=== PATIENT | male | born 1975 | race Two or more races ===

== ENCOUNTER → 2017-08-26 | Outpatient (CLI) | payer OTHER ==
[2017-08-26 17:30] LABS: ALANINE AMINOTRANSFERASE 39 U/L (12-78); ALBUMIN 3.9 g/dL (3.4-5.0); ANION GAP 7 mmol/L (5-15); CALCIUM 9.1 mg/dL (8.5-10.1); CHLORIDE 107 mmol/L (98-107); CHOLESTEROL, TOTAL 181 mg/dL (140-239); CREATININE 0.91 mg/dL (0.7-1.3); TRIGLYCERIDES 136 mg/dL (50-200); VLDL CHOLESTEROL 27 mg/dL (0-25)
[2017-08-26 17:32] LABS: ALKALINE PHOSPHATASE 76 U/L (45-117); BILIRUBIN,TOTAL 0.4 mg/dL (0.2-1.0); CHOL/HDL RATIO 5.2; HDL CHOL % 19 % (26-37); HDL CHOLESTEROL (DIRECT) 35 mg/dL (40-60); LDL CHOLESTEROL,CALCULATED 119 mg/dL (54-169); LDL/HDL RATIO 3.4 (0.5-3.0); TOTAL PROTEIN 8.1 g/dL (6.4-8.2)
== END ==
LOC: LAB 16:56
PROVIDERS: ATTEND Family Medicine
DX: Z13.220 Encounter for screening for lipoid disorders (principal); Z13.1 Encounter for screening for diabetes mellitus
CPT/HCPCS: 36415; 80053; 80061

== ENCOUNTER → 2017-11-18 | Outpatient (CLI) | payer OTHER | END | disposition home or self-care (01) | LOC: CFH 10:57 | PROVIDERS: ATTEND Otolaryngology | DX: H74.8X1 Other specified disorders of right middle ear and mastoid (principal); H65.31 Chronic mucoid otitis media, right ear; H69.81 Other specified disorders of Eustachian tube, right ear; H61.23 Impacted cerumen, bilateral | CPT/HCPCS: 70480 ==

== ENCOUNTER → 2018-01-01 | Outpatient (CLI) | payer OTHER ==
[~2018-01-01] MED LIST: NONE PER PT
== END | disposition home or self-care (01) ==
LOC: STAR 08:28
PROVIDERS: ATTEND Specialist
DX: Z02.9 Encounter for administrative examinations, unspecified (principal)

== ENCOUNTER 2018-01-05 05:15 | Day surgery (SDC) | payer OTHER ==
[2018-01-01 11:55] VITALS: BP 111/74
[~2018-01-05] VITALS: Ht 170.2 cm; Wt 86.6 kg
[2018-01-05] MEDS ORDERED: LACTATED RINGERS 1,000 ML IV SCH (05:47)
[2018-01-05 05:48] VITALS: BP 111/74
[2018-01-05] MEDS ORDERED: LIDOCAINE-MPF 1%, 2ML INFIL ONE (06:00)
[2018-01-05] MEDS ORDERED: GELFILM OPHTHALMIC DRESSING ONE (06:27)
[2018-01-05] MEDS ORDERED: LIDOCAINE 1%-EPI 1:100K, 30ML ONE (06:27)
[2018-01-05] MEDS ORDERED: BACITRACIN OINT 500U/GM, 15 GM ONE (06:27)
[2018-01-05] MEDS ORDERED: EPINEPHRINE 1 MG/ML, 1ML ONE (06:28)
[2018-01-05] MEDS ORDERED: OFLOXACIN OPHTH 0.3%, 5ML ONE (06:35)
[2018-01-05] MEDS ORDERED: FENTANYL PF 250 MCG/5ML ONE (06:52)
[2018-01-05] MEDS ORDERED: MIDAZOLAM 1 MG/ML, 2ML ONE (06:52)
[2018-01-05] MEDS ORDERED: ROCURONIUM 10MG/ML,5ML ONE (06:53)
[2018-01-05] MEDS ORDERED: ACETAMINOPHEN 500 MG TABLET PO ONE (07:00)
[2018-01-05] MEDS ORDERED: ONDANSETRON ODT 8 MG PO ONE (07:00)
[2018-01-05] MEDS ORDERED: CEFAZOLIN 1,000 MG ONE ×2 (08:00)
[2018-01-05] MEDS ORDERED: HYDROmorphone 1 MG/ML, 1ML IV PRN (08:00)
[2018-01-05] MEDS ORDERED: hydrALAzine 20 MG/ML, 1ML IV PRN (08:00)
[2018-01-05] MEDS ORDERED: ALBUTEROL SULFATE 2.5 MG/3 ML NPPB PRN (08:00)
[2018-01-05] MEDS ORDERED: PROMETHAZINE 12.5 MG SUPP PR PRN (08:00)
[2018-01-05] MEDS ORDERED: MORPHINE SULFATE 4 MG/ML, 1ML IVPush PRN (08:00)
[2018-01-05] MEDS ORDERED: LORazepam 2 MG/ML, 1ML IVPush PRN (08:00)
[2018-01-05] MEDS ORDERED: ONDANSETRON 2MG/ML, 2ML ONE (08:00)
[2018-01-05] MEDS ORDERED: EPHEDRINE 50 MG/ML, 1ML IVPush PRN (08:00)
[2018-01-05] MEDS ORDERED: PROPOFOL 10 MG/ML, 20ML ONE (08:00)
[2018-01-05] MEDS ORDERED: PROMETHAZINE 25 MG/ML, 1ML IV PRN (08:00)
[2018-01-05] MEDS ORDERED: MIDAZOLAM 1 MG/ML, 2ML IV PRN (08:00)
[2018-01-05] MEDS ORDERED: DEXAMETHASONE 4 MG/ML, 1ML ONE ×2 (08:00)
[2018-01-05] MEDS ORDERED: ONDANSETRON 2MG/ML, 2ML IV PRN (08:00)
[2018-01-05] MEDS ORDERED: ONDANSETRON ODT 8 MG PO PRN (08:00)
[2018-01-05] MEDS ORDERED: MEPERIDINE/PF 25MG/0.5ML IVPush PRN (08:00)
[2018-01-05] MEDS ORDERED: HALOPERIDOL 5 MG/ML IV PRN (08:00)
[2018-01-05] MEDS ORDERED: LABETALOL 5MG/ML, 20ML IV PRN (08:00)
[2018-01-05] MEDS ORDERED: SUCCINYLCHOLINE 20 MG/ML, 10ML ONE (08:00)
[2018-01-05] MEDS ORDERED: FENTANYL PF 100 MCG/2ML IV PRN (08:00)
[2018-01-05] MEDS ORDERED: PHENYLEPHRINE 10 MG/ML ONE ×2 (08:01→12:25)
[2018-01-05] MEDS ORDERED: OXYcodone 5 MG/5 ML ORAL.SOL UDC ONE ×2 (11:54→13:32)
[2018-01-05] MEDS: OXYcodone 5 MG/5 ML ORAL.SOL UDC PO PRN ×2 (12:02→13:34)
== END 2018-01-05 14:28 | disposition home or self-care (01) ==
LOC: OUT 05:15
PROVIDERS: ATTEND Specialist
DX: H90.71 Mixed conductive and sensorineural hearing loss, unilateral, right ear, with unrestricted hearing on the contralateral side (principal); H71.21 Cholesteatoma of mastoid, right ear; H71.01 Cholesteatoma of attic, right ear
CPT/HCPCS: 69642; 88304; J0171; J0330; J0690; J1100; J2250; J2370; J2405; J2704; J3010; J3490; J7120; Q0162; 88341; 88342; G0461